=== PATIENT | male | born 1970 | race Caucasian/White ===

== ENCOUNTER → 2018-04-03 | Outpatient (CLI) | payer OTHER ==
[~2018-04-03] MED LIST: ISOVUE-370 76% 100ML VIAL (Q9967) As Ordered
== END ==
LOC: M RAD 14:05
DX: D11.0 Benign neoplasm of parotid gland (principal)
CPT/HCPCS: Q9967

== ENCOUNTER → 2019-09-01 | Outpatient (REF) | payer OTHER | LOC: M SFHCLERA 15:42 | PROVIDERS: ATTEND Physician Assistant | DX: J02.9 Acute pharyngitis, unspecified (principal) ==

== ENCOUNTER → 2019-09-01 | Outpatient (CLI) | payer OTHER ==
--- NOTE | 2019-09-01 13:30 | REP ---
PA AND LATERAL CHEST: 09/01/2019. COMPARISON: [facility] 03/31/2015, chest x-ray 05/13/2014. CLINICAL HISTORY: Dyspnea with exertion, cough. History CHF. FINDINGS: Two views are provided. The lungs are well inflated. CP angles sharply defined. I see no lateral pleural thickening, apical scarring, or pneumothorax. No definite effusion or acute infiltrate. A few cuffed bronchi in the perihilar regions may reflect reactive airway disease or bronchitis. The heart, mediastinal and hilar contours are normal. No vascular redistribution or edema. Aorta normal for age. Airway intact. Bony thorax unremarkable. IMPRESSION: 1. Some perihilar changes of reactive airway disease or bronchitis without dense consolidation or effusion. 2. No cardiomegaly, vascular redistribution, or pulmonary edema. Electronically Signed by Tonny Pedro MD 09/01/2019 07:55 P
== END ==
LOC: M LRY 11:30
PROVIDERS: ATTEND Physician Assistant
DX: R06.09 Other forms of dyspnea (principal)

== ENCOUNTER → 2020-03-03 | Outpatient (CLI) | payer OTHER | LOC: M LABSMTC 14:06 | PROVIDERS: ATTEND Family Medicine | DX: Z03.818 Encounter for observation for suspected exposure to other biological agents ruled out (principal); Z11.59 Encounter for screening for other viral diseases | CPT/HCPCS: C9803; U0003 ==

== ENCOUNTER 2021-03-26 09:05 | Emergency (ER) | payer OTHER ==
[~2021-03-26] VITALS: Ht 165.1 cm; Wt 136.3 kg
[2021-03-26 09:06] VITALS: BP 151/70
[2021-03-26] MEDS ORDERED: SPIR1TAB34 (09:15)
[2021-03-26] MEDS ORDERED: OMEP10CASR PO (09:15)
[2021-03-26] MEDS ORDERED: FLUO20CA22 (09:15)
[2021-03-26] MEDS ORDERED: METO10TA2 (09:15)
== END 2021-03-26 10:05 | disposition home or self-care (01) ==
LOC: M ED 09:05
DX: T59.4X1A Toxic effect of chlorine gas, accidental (unintentional), initial encounter (principal); J45.909 Unspecified asthma, uncomplicated; I10 Essential (primary) hypertension; Z79.899 Other long term (current) drug therapy; Z88.0 Allergy status to penicillin; Z88.8 Allergy status to other drugs, medicaments and biological substances

== ENCOUNTER → 2021-05-09 | Outpatient (REF) | payer OTHER ==
[~2021-05-09] MED LIST changes: +FLUO20CA22; -ISOVUE-370 76% 100ML VIAL (Q9967) As Ordered; +METO10TA2; +OMEP10CASR PO; +SPIR1TAB34
== END ==
LOC: M LAB REF 09:23
PROVIDERS: ATTEND Internal Medicine
DX: K21.9 Gastro-esophageal reflux disease without esophagitis (principal)

== ENCOUNTER → 2021-09-24 | Outpatient (CLI) | payer OTHER ==
[~2021-09-24] MED LIST changes: +ALBU8.5H INH; -FLUO20CA22; +FLUO20CA22 PO; -METO10TA2; +METO10TA2 PO; +OMEP-221 PO; +SUCR1TAB56 PO
== END ==
LOC: M LABSMTC 10:36
PROVIDERS: ATTEND Anesthesiology
DX: Z01.818 Encounter for other preprocedural examination (principal); Z11.52 Encounter for screening for COVID-19

== ENCOUNTER 2021-09-29 09:48 | Day surgery (SDC) | payer OTHER ==
[~2021-09-29] VITALS: Ht 165.1 cm; Wt 134.2 kg
[~2021-09-29 09:48] MED LIST changes: +NS 1,000 ML IV ONE
[2021-09-29] MEDS ORDERED: LIDOCAINE 2% 100MG/5ML SDV (FOR ANES.) As Ordered ONE (10:19)
[2021-09-29] MEDS ORDERED: propofoL 200 MG/20 ML VIAL As Ordered ONE ×2 (10:19→11:58)
[2021-09-29] MEDS ORDERED: fentaNYL 100 MCG/2 ML INJECTION (J3010) As Ordered ONE (11:33)
--- NOTE | 2021-09-29 11:45 | ROOR ---
Patient Name: Dany Gutierrez Procedure Date: 09/29/2021 11:31 AM Date of : 1970 Age: 51 Room: [facility] Gender: Male Note Status: Finalized Procedure: Upper GI endoscopy Indications: Heartburn Providers: Florian Ahmadi MD Referring MD: MAMADOU REYNOLDS MD Requesting Provider: Medicines: Monitored Anesthesia Care Complications: No immediate complications. Procedure: Pre-Anesthesia Assessment: - The heart rate, respiratory rate, oxygen saturations, blood pressure, adequacy of pulmonary ventilation, and response to care were monitored throughout the procedure. The Endoscope was introduced through the mouth, and advanced to the second part of duodenum. The upper GI endoscopy was accomplished without difficulty. The patient tolerated the procedure well. Findings: The examined esophagus was normal. Small Hiatal Hernia. The entire examined stomach was normal. The examined duodenum was normal. Impression: - Normal esophagus. - Small Hiatal Hernia. - Normal stomach. - Normal examined duodenum. - No specimens collected. Recommendation: - Observe patient's clinical course. - Continue present medications. Procedure Code(s): --- Professional --- 19388, Esophagogastroduodenoscopy, flexible, transoral; diagnostic, including collection of specimen(s) by brushing or washing, when performed (separate procedure) Diagnosis Code(s): --- Professional --- R12, Heartburn CPT copyright 2019 [employer]. All rights reserved. The codes documented in this report are preliminary and upon personal injury legal assistant review may be revised to meet current compliance requirements. Florian Ahmadi MD Florian Ahmadi MD 09/29/2021 11:44:55 AM Electronically signed by Florian Ahmadi MD Number of Addenda: 0 Note Initiated On: 09/29/2021 11:31 AM Estimated Blood Loss: Estimated blood loss: none.
--- NOTE | 2021-09-29 12:06 | ROOR ---
Patient Name: Dany Gutierrez Procedure Date: 09/29/2021 11:31 AM Date of : 1970 Age: 51 Room: [facility] Gender: Male Note Status: Finalized Procedure: Colonoscopy Indications: Screening for colorectal malignant neoplasm Providers: Florian Ahmadi MD Referring MD: MAMADOU REYNOLDS MD Requesting Provider: Medicines: Monitored Anesthesia Care Complications: No immediate complications. Procedure: Pre-Anesthesia Assessment: - The heart rate, respiratory rate, oxygen saturations, blood pressure, adequacy of pulmonary ventilation, and response to care were monitored throughout the procedure. The Colonoscope was introduced through the anus and advanced to the terminal ileum, with identification of the appendiceal orifice and IC valve. The colonoscopy was performed without difficulty. The patient tolerated the procedure well. The quality of the bowel preparation was good. Findings: The perianal and digital rectal examinations were normal. Two sessile polyps were found in the distal sigmoid colon. The polyps were 5 to 9 mm in size. These polyps were removed with a cold snare. Resection and retrieval were complete. To prevent bleeding post-maneuver, one hemostatic clip was successfully placed. Three sessile polyps were found in the rectum. The polyps were 4 to 5 mm in size. These polyps were removed with a cold snare. Resection and retrieval were complete. The exam was otherwise without abnormality. Internal hemorrhoids were found during retroflexion. The hemorrhoids were mild. Impression: - Two 5 to 9 mm polyps in the distal sigmoid colon, removed with a cold snare. Resected and retrieved. Clip was placed. - Three 4 to 5 mm polyps in the rectum, removed with a cold snare. Resected and retrieved. - Small internal hemorrhoids. - The examination was otherwise normal. Recommendation: - Repeat colonoscopy in 3 years for surveillance. Procedure Code(s): --- Professional --- 01485, Colonoscopy, flexible; with removal of tumor(s), polyp(s), or other lesion(s) by snare technique Diagnosis Code(s): --- Professional --- K64.8, Other hemorrhoids K62.1, Rectal polyp K63.5, Polyp of colon Z12.11, Encounter for screening for malignant neoplasm of colon CPT copyright 2019 [employer]. All rights reserved. The codes documented in this report are preliminary and upon outpatient coder review may be revised to meet current compliance requirements. Florian Ahmadi MD Florian Ahmadi MD 09/29/2021 12:05:57 PM Electronically signed by Florian Ahmadi MD Number of Addenda: 0 Note Initiated On: 09/29/2021 11:31 AM Estimated Blood Loss: Estimated blood loss: none.
[2021-09-29 12:20] VITALS: BP 134/78
== END 2021-09-29 12:31 | disposition home or self-care (01) ==
LOC: M OPP 09:48
PROVIDERS: ATTEND Internal Medicine Gastroenterology
DX: Z12.11 Encounter for screening for malignant neoplasm of colon (principal); K63.5 Polyp of colon; K62.1 Rectal polyp; K64.8 Other hemorrhoids; K44.9 Diaphragmatic hernia without obstruction or gangrene; R12 Heartburn; I50.9 Heart failure, unspecified; K76.0 Fatty (change of) liver, not elsewhere classified; Z79.899 Other long term (current) drug therapy; Z88.0 Allergy status to penicillin; Z88.2 Allergy status to sulfonamides; Z88.8 Allergy status to other drugs, medicaments and biological substances; Z87.891 Personal history of nicotine dependence
CPT/HCPCS: 43235; 45385; 88305; J3010

== ENCOUNTER → 2022-02-05 | Outpatient (CLI) | payer OTHER ==
[~2022-02-05] MED LIST changes: -NS 1,000 ML IV ONE; -OMEP-221 PO; +OMEP40CA5 PO
== END ==
LOC: M WHC 12:52
PROVIDERS: ATTEND Nurse Practitioner Family
DX: N18.2 Chronic kidney disease, stage 2 (mild) (principal); R39.11 Hesitancy of micturition

== ENCOUNTER → 2022-03-22 | Outpatient (CLI) | payer OTHER | LOC: M RAD 10:02 | PROVIDERS: ATTEND Registered Nurse | DX: Z01.810 Encounter for preprocedural cardiovascular examination (principal); K76.0 Fatty (change of) liver, not elsewhere classified; E66.01 Morbid (severe) obesity due to excess calories ==

== ENCOUNTER → 2022-06-11 | Outpatient (CLI) | payer OTHER | LOC: M PLARAD 14:08 | PROVIDERS: ATTEND Physician Assistant Medical | DX: H90.3 Sensorineural hearing loss, bilateral (principal) ==

== ENCOUNTER → 2022-09-14 | Outpatient (CLI) | payer OTHER ==
[~2022-09-14] MED LIST changes: +METHACHOLINE KIT INH ONE
== END ==
LOC: M CARPUL 07:31
PROVIDERS: ATTEND Physician Assistant
DX: R06.00 Dyspnea, unspecified (principal)
CPT/HCPCS: 94070; J7674

== ENCOUNTER → 2023-03-25 | Outpatient (CLI) | payer OTHER ==
[~2023-03-25] MED LIST changes: -METHACHOLINE KIT INH ONE
== END ==
LOC: M SLEEP HO 11:59
PROVIDERS: ATTEND Physician Assistant
DX: G47.33 Obstructive sleep apnea (adult) (pediatric) (principal)

== ENCOUNTER → 2023-09-23 | Outpatient (CLI) | payer OTHER | LOC: M SLEEP 20:00 | PROVIDERS: ATTEND Physician Assistant | DX: G47.33 Obstructive sleep apnea (adult) (pediatric) (principal) ==

== ENCOUNTER → 2024-01-20 | Outpatient (CLI) | payer OTHER ==
[2024-01-20 16:48] LABS: ALBUMIN 4.3 G/DL (3.2-5.2); ALKALINE PHOSPHATASE 67 U/L (46-116); ALT/SGPT 38 U/L (7.0-40); AST/SGOT 23 U/L (<34); BILIRUBIN,TOTAL 0.3 MG/DL (0.3-1.2); BLOOD UREA NITROGEN 17 MG/DL (9-23); CALCIUM LEVEL 9.4 MG/DL (8.5-10.1); CARBON DIOXIDE LEVEL 29 MMOL/L (20-31); CHLORIDE LEVEL 104 MMOL/L (98-107); CREATININE FOR GFR 1.05 MG/DL (0.70-1.30); GLOMERULAR FILTRATION RATE > 60.0 (>56); GLUCOSE, FASTING 138 MG/DL (60-100); POTASSIUM SERUM 3.9 MMOL/L (3.5-5.1); SODIUM LEVEL 142 MMOL/L (136-145); TOTAL PROTEIN 6.9 G/DL (5.7-8.2)
[2024-01-20 17:15] LABS: HEMOGLOBIN A1c 5.5 % (4.0-6.0)
[2024-01-20 18:36] LABS: BASO % 0.6 % (0.0-1.0); EOS # 0.2 10^3/uL (0.0-0.5); EOS % 3.7 % (0.0-3.0); HEMATOCRIT 44.7 % (42.0-52.0); LYMPH # 1.6 10^3/uL (1.5-5.0); LYMPH % 24.5 % (24.0-44.0); MEAN CORPUSCULAR HEMOGLOBIN 30.8 pg (27.0-33.0); MEAN CORPUSCULAR HGB CONC 33.6 g/dl (32.0-36.5); MEAN CORPUSCULAR VOLUME 91.8 fl (80.0-96.0); MONO # 0.4 10^3/uL (0.0-0.8); MONO % 6.8 % (2.0-8.0); NEUTROPHILS # 4.1 10^3/uL (1.5-8.5); NEUTROPHILS % 64.2 % (36.0-66.0); PLATELET COUNT, AUTOMATED 408 10^3/uL (150-450); RED BLOOD COUNT 4.87 10^6/uL (4.30-6.10); WHITE BLOOD COUNT 6.4 10^3/uL (4.0-10.0)
== END ==
LOC: M WUC 13:23
PROVIDERS: ATTEND Internal Medicine
DX: R73.01 Impaired fasting glucose (principal); N40.1 Benign prostatic hyperplasia with lower urinary tract symptoms

== ENCOUNTER 2025-01-28 19:03 | Emergency (ER) | payer OTHER ==
[~2025-01-28] VITALS: Ht 162.6 cm; Wt 106.3 kg
[~2025-01-28 19:03] MED LIST changes: +FLUO-365 PO; -FLUO20CA22 PO
[2025-01-28 23:01] VITALS: TEMP 98.4; O2SAT 96
[2025-01-28] MEDS: IPRATROPIUM 0.5MG/ALBUTEROL 2.5MG INH SOL UD 3ML NEB ONE ×2 (23:53→23:56)
[2025-01-28 23:57] VITALS: BP 117/68
[2025-01-29 00:12] LABS: BASO # 0.1 10^3/uL (0.0-0.2); BASO % 0.6 % (0.0-1.0); EOS # 0.3 10^3/uL (0.0-0.5); EOS % 3.8 % (0.0-3.0); HEMATOCRIT 40.4 % (42.0-52.0); HEMOGLOBIN 13.3 g/dl (13.5-17.5); LYMPH # 2.1 10^3/uL (1.5-5.0); LYMPH % 24.7 % (24.0-44.0); MEAN CORPUSCULAR HEMOGLOBIN 30.1 pg (27.0-33.0); MEAN CORPUSCULAR HGB CONC 32.9 g/dl (32.0-36.5); MEAN CORPUSCULAR VOLUME 91.4 fl (80.0-96.0); MONO # 0.8 10^3/uL (0.0-0.8); MONO % 8.8 % (2.0-8.0); NEUTROPHILS # 5.3 10^3/uL (1.5-8.5); NEUTROPHILS % 61.8 % (36.0-66.0); PLATELET COUNT, AUTOMATED 387 10^3/uL (150-450); RED BLOOD COUNT 4.42 10^6/uL (4.30-6.10); WHITE BLOOD COUNT 8.6 10^3/uL (4.0-10.0)
[2025-01-29] MEDS: methylPREDNISolone 125MG 2ML VIAL IV ONE (00:18)
[2025-01-29 00:25] LABS: ALBUMIN 3.9 G/DL (3.2-5.2); ALKALINE PHOSPHATASE 62 U/L (40-129); ALT/SGPT 30 U/L (7.0-40); AST/SGOT 22 U/L (<34); BILIRUBIN,DIRECT < 0.1 MG/DL (<0.4); BILIRUBIN,TOTAL 0.2 MG/DL (0.3-1.2); BLOOD UREA NITROGEN 18 MG/DL (9-23); CALCIUM LEVEL 9.3 MG/DL (8.5-10.1); CARBON DIOXIDE LEVEL 26 MMOL/L (20-31); CHLORIDE LEVEL 106 MMOL/L (98-107); CREATININE FOR GFR 1.02 MG/DL (0.70-1.30); GLOMERULAR FILTRATION RATE 87.9 (>56); GLUCOSE, FASTING 110 MG/DL (60-100); SODIUM LEVEL 142 MMOL/L (136-145); TOTAL PROTEIN 6.6 G/DL (5.7-8.2)
[2025-01-29] MEDS ORDERED: PRED20TA PO (01:17)
[2025-01-29] MEDS ORDERED: VENTAER INH (01:17)
== END 2025-01-29 01:34 | disposition home or self-care (01) ==
LOC: M ED 19:03
DX: T59.4X1A Toxic effect of chlorine gas, accidental (unintentional), initial encounter (principal); J45.901 Unspecified asthma with (acute) exacerbation; I10 Essential (primary) hypertension; Z79.899 Other long term (current) drug therapy; Z88.0 Allergy status to penicillin; Z88.8 Allergy status to other drugs, medicaments and biological substances
CPT/HCPCS: 71046; 80048; 80076; 85025; 93005; 94640; 94760; 96374; 99284; J2919

== ENCOUNTER 2025-04-29 11:37 | Emergency (ER) | payer OTHER ==
[~2025-04-29] VITALS: Ht 165.1 cm; Wt 93.1 kg
[~2025-04-29 11:37] MED LIST changes: +PRED20TA PO; +VENTAER INH
[2025-04-29 12:49] LABS: BASO # 0.0 10^3/uL (0.0-0.2); BASO % 0.4 % (0.0-1.0); EOS # 0.2 10^3/uL (0.0-0.5); EOS % 2.0 % (0.0-3.0); LYMPH # 1.6 10^3/uL (1.5-5.0); LYMPH % 20.7 % (24.0-44.0); MONO # 0.6 10^3/uL (0.0-0.8); MONO % 8.2 % (2.0-8.0); NEUTROPHILS # 5.2 10^3/uL (1.5-8.5); NEUTROPHILS % 68.4 % (36.0-66.0); PLATELET COUNT, AUTOMATED 373 10^3/uL (150-450)
[2025-04-29 13:16] LABS: ALT/SGPT 31.0 U/L (7.0-40); AST/SGOT 19.0 U/L (<34); MAGNESIUM LEVEL 1.7 MG/DL (1.8-2.4)
[2025-04-29 13:21] LABS: KETONE, URINE AUTO RFX TRACE mg/dL (NEGATIVE); LEUKOCYTE ESTERASE UR AUTO RFX NEGATIVE (NEGATIVE); MUCUS, URINE RFX SMALL (NEGATIVE); NITRITE, URINE AUTO RFX NEGATIVE (NEGATIVE); RBC, URINE AUTO RFX 1 /HPF (0-3); SQUAM EPITHELIAL CELL UR AURFX 0 /HPF (0-6); WBC, URINE AUTO RFX 1 /HPF (0-3)
[2025-04-29 16:09] VITALS: BP 117/58; TEMP 98.2; O2SAT 98
[2025-04-29] MEDS ORDERED: PEPC1TAB5 PO (16:26)
== END 2025-04-29 16:33 | disposition home or self-care (01) ==
LOC: M ED 11:37
DX: R19.7 Diarrhea, unspecified (principal); Z98.84 Bariatric surgery status; Z79.899 Other long term (current) drug therapy; Z88.0 Allergy status to penicillin; Z88.2 Allergy status to sulfonamides; Z88.8 Allergy status to other drugs, medicaments and biological substances

== ENCOUNTER → 2025-08-02 | Outpatient (CLI) | payer OTHER ==
[~2025-08-02] MED LIST changes: +PEPC1TAB5 PO
[2025-08-02 10:41] LABS: BASO # 0.0 10^3/uL (0.0-0.2); BASO % 0.5 % (0.0-1.0); EOS # 0.3 10^3/uL (0.0-0.5); EOS % 3.2 % (0.0-3.0); LYMPH # 0.8 10^3/uL (1.5-5.0); LYMPH % 9.6 % (24.0-44.0); MONO # 0.7 10^3/uL (0.0-0.8); MONO % 8.6 % (2.0-8.0); NEUTROPHILS # 6.6 10^3/uL (1.5-8.5); NEUTROPHILS % 77.7 % (36.0-66.0); PLATELET COUNT, AUTOMATED 392 10^3/uL (150-450)
[2025-08-02 10:57] LABS: ALT/SGPT 41 U/L (7.0-40); AST/SGOT 24 U/L (<34); CALCIUM LEVEL 9.3 MG/DL (8.5-10.1); CARBON DIOXIDE LEVEL 30 MMOL/L (20-31); CHLORIDE LEVEL 103 MMOL/L (98-107); CREATININE FOR GFR 0.94 MG/DL (0.70-1.30); GLOMERULAR FILTRATION RATE > 90.0 (>56); POTASSIUM SERUM 4.6 MMOL/L (3.5-5.1); PROSTATIC SPECIFIC AG MONITOR 0.52 NG/ML (< 4.00); SODIUM LEVEL 142 MMOL/L (136-145)
== END ==
LOC: M LAB 09:34
PROVIDERS: ATTEND Internal Medicine
DX: K21.9 Gastro-esophageal reflux disease without esophagitis (principal); N40.1 Benign prostatic hyperplasia with lower urinary tract symptoms